=== PATIENT | female | born 2000 | race Caucasian/White ===

== ENCOUNTER 2020-02-25 12:53 | Emergency (ER) | payer BC, SELFPAY ==
[~2020-02-25] VITALS: Ht 157.5 cm; Wt 52.2 kg
[2020-02-25 13:28] VITALS: BP_SYST 108
[2020-02-25] MEDS ORDERED: ACETAMINOPHEN 500 MG TABLET PO ONE (13:45)
[2020-02-25] MEDS ORDERED: ACETAMINOPHEN 500 MG TABLET ONE (14:30)
--- NOTE | 2020-02-25 14:30 | NUR ---
PT TRIAGED AND PLACED IN TENT FOR EVALUATION
--- NOTE | 2020-02-25 14:30 | NUR ---
DR. DOWNS TO [facility] FOR EVALUATION
[2020-02-25 14:55] VITALS: BP_SYST 108
--- NOTE | 2020-02-25 14:55 | NUR ---
Patient given written and verbal discharge instructions and verbalizes understanding. DR. HIMANSHU GRIFFITHS MD discussed with patient the results and treatment provided. Patient in stable condition. ID arm band removed. Rx of TRAMADOL AND ZOFRAN given. Patient educated on pain management and to follow up with PMD. Pain Scale 2/10. Opportunity for questions provided and answered. Medication side effect fact sheet provided.
== END 2020-02-25 14:55 | disposition home or self-care (01) ==
LOC: SED 12:53
DX: B34.9 Viral infection, unspecified (principal); Z20.828 Contact with and (suspected) exposure to other viral communicable diseases
CPT/HCPCS: 86710; 99283